=== PATIENT | female | born 1945 | race Caucasian/White ===

== ENCOUNTER → 2017-03-17 | Outpatient (CLI) | payer OTHER ==
[~2017-03-17] MED LIST: ACYCLOVIR PO; ALAVERT10 MG; ALBUTEROL17 GM INH; ALEVE; ALEVE-D SINUS-1 EACH PO; ALLERGY RELIEF10 M1 PO; AMBIEN10 MG PO; ANASTROZOLE1 MG PO; ASPIR-TRIN325 MG PO; ASPIRIN81 M1 PO; ATENOLOL PO; AZILSARTAN MEDOXOMIL; COZAAR100 MG PO; DAILY VALUE1 EACH PO; DAYPRO600 M1 PO; DESYREL50 MG PO; DOCU SOFT100 M1 PO; ETODOLAC200 MG PO; ETODOLAC500 MG PO; GLUCOSAMINE 1,51 CA1 PO; GLUCOSAMINE HC500 MG PO; HEARTBURN RELIE75 MG; HEARTBURN RELIE75 MG PO; HYDROCHLOROTHIA25 MG PO; LIORESAL10 MG PO; LIPITOR PO; LODINE400 MG PO; LOSARTAN-HCTZ1 EAC1 PO; MELATONIN3 MG PO; NEPHROCAPS1 CAP PO; OSTEO BI FLEX; OSTEO BI FLEX PO; OXYCODONE-APAP1 EAC5 PO; PAROXETINE HCL10 MG PO; PAROXETINE HCL20 MG PO; PAXIL10 MG PO; PLAVIX PO; PRILOSEC40 MG PO; PULMICORT180 MCG/A1 IH; SLEEP AID; SLEEP AID PO; TOPAMAX25 MG PO; VITAMIN D400 UNI2 PO; ZOCOR20 MG PO; [UNRECOGNIZED DRUG - REMARK] PO
--- NOTE | ~2017-03-17 | US37 ---
[facility] A Service of [facility] & [facility] RADIOLOGY TEXT RESULTS PATIENT: JANE TUTTLE LOCATION: SNIV : 47 UNIT #: [id number] AGE: [address]: Nakul Erazo MD SEX: F ORDER DR: [id number] [address] [address] [id number] O MR#: [id number] Acc #: [id number] NAME: JANE TUTTLE : 1945 SEX: F STUDY DATE/TIME: 03/17/2017 13:10 UNIT: SNIV ROOM: STUDY DESCRIPTION: US Carotid W/Doppler Bilateral Attending Physician: Nakul Erazo M.D. Referring Physician: Nakul Erazo M.D. Ordering Physician: Nakul Erazo M.D. Primary Care Physician: Nakul Erazo M.D. MEDICAL IMAGING REPORT This report is preliminary unless electronic signature is present. EXAM Bilateral carotid Doppler, 03/17/2017. REASON FOR EXAM Carotid stenosis. History of carotid endarterectomy. FINDINGS The right common, internal and external carotid arteries are patent, with plaque noted in the common carotid artery but no appreciable plaque in the internal carotid artery and mild plaque in the external carotid artery. Velocity of the common carotid artery is 108 cm/sec. Peak systolic velocity of the right proximal internal carotid artery is 87 cm/sec with an end-diastolic velocity of 14 cm/sec for an ICA/CCA ratio of 0.81. External carotid artery had a velocity of 506 cm/sec. The vertebral artery is visualized with antegrade flow. The left common, internal and external carotid arteries are patent, with plaque noted in the internal and external carotid arteries. Velocity of the common carotid artery is 94 cm/sec. Peak systolic velocity of the left proximal internal carotid artery is 122 cm/sec with an end-diastolic velocity of 26 cm/sec for an ICA/CCA ratio of 1.3. External carotid artery had a velocity of 443 cm/sec. The left vertebral artery is not seen or heard on this examination. IMPRESSION 1. Less than 50% stenosis of the right and left internal carotid arteries. 2. Elevated velocities consistent with significant stenosis of the right and left external carotid arteries. 3. Antegrade flow of the right vertebral artery, but no visualization or auscultation of the left vertebral artery. [facility] A Service of [facility] & [facility] RADIOLOGY TEXT RESULTS PATIENT: JANE TUTTLE [id number] [birth year] UNIT #: [id number] AGE: [address]: Nakul Erazo MD SEX: F ORDER DR: Dictated by... Remi Jacobs M.D. THIS IS AN ELECTRONICALLY VERIFIED REPORT Remi Jacobs M.D. at 03/18/2017 8:58 AM TRISTA/shon TD: 03/18/2017 04:03 JOB #: [id number] MEDICAL IMAGING REPORT Page 1 of 1
== END | disposition home or self-care (01) ==
LOC: SNIV 13:01
DX: I65.23 Occlusion and stenosis of bilateral carotid arteries (principal)
CPT/HCPCS: 93880

== ENCOUNTER → 2017-04-09 | Outpatient (CLI) | payer OTHER ==
--- NOTE | ~2017-04-09 | US135 ---
[facility] A Service of [facility] & [facility] RADIOLOGY TEXT RESULTS PATIENT: JANE TUTTLE LOCATION: CNIV : 47 UNIT #: [id number] AGE: [address]: Bladimir Villafana MD SEX: F ORDER DR: [id number] [facility] [address] [place], [place] [address] [id number] O MR#: [id number] Acc #: [id number] NAME: JANE TUTTLE. : 1945 SEX: F STUDY DATE/TIME: 04/09/2017 9:48 UNIT: CNIV ROOM: STUDY DESCRIPTION: US U/L Ext Art Study Comp Aashish Attending Physician: Bladimir Villafana M.D. Referring Physician: Bladimir Villafana M.D. Ordering Physician: Bladimir Villafana M.D. Primary Care Physician: Nakul Erazo M.D. MEDICAL IMAGING REPORT This report is preliminary unless electronic signature is present EXAM Bilateral ankle to brachial indices INDICATIONS Bilateral claudication. Rest pain. TECHNIQUE Sequential images were obtained through bilateral lower extremities. Pulse volume recordings were generated. FINDINGS Patient's ankle to brachial indices on the right are markedly abnormal at 0.42 at the pedis artery on the right and 0.44 at the posterior tibial artery on the right. The ankle to brachial indices on the left are essentially normal measuring 1.0 at the posterior tibial artery and 0.95 at the dorsalis pedis artery. There is marked dampening of the waveforms within the right calf and right ankle and the patient's toe to brachial index on the right is also abnormal at 0.28. Toe-brachial index on the left is 0.68. IMPRESSION 1. Markedly abnormal ABIs are seen on the right, suggesting multiple level arterial disease. ABIs on the left are essentially normal. Further evaluation with CT angiography of the abdomen and pelvis with bilateral lower extremity runoff may allow for better evaluation of peripheral arterial disease within the right lower extremity. 2. Toe to brachial index on the right is also very abnormal at 0.28. This may reflect small vessel disease, inflow disease, or a combination of both. Dictated by... [facility] A Service of [facility] & [facility] RADIOLOGY TEXT RESULTS PATIENT: JANE TUTTLE LOCATION: [facility] : [birth year] UNIT #: [id number] AGE: [address]: Bladimir Villafana MD SEX: F ORDER DR: Deysi Moody M.D. THIS IS AN ELECTRONICALLY VERIFIED REPORT Deysi Moody M.D. at 04/13/2017 5:05 PM AFF/pcl TD: 04/10/2017 22:19 JOB #: [id number] MEDICAL IMAGING REPORT Page 1 of 1 COPY
== END | disposition home or self-care (01) ==
LOC: CNIV 09:39
DX: I65.23 Occlusion and stenosis of bilateral carotid arteries (principal); I99.8 Other disorder of circulatory system
CPT/HCPCS: 93923

== ENCOUNTER → 2017-04-27 | Outpatient (CLI) | payer OTHER | END | disposition home or self-care (01) | LOC: CLAB 11:42 | DX: I73.9 Peripheral vascular disease, unspecified (principal) | CPT/HCPCS: 36415; 84132 ==